=== PATIENT | male | born 1975 | race Caucasian/White ===

== ENCOUNTER 2016-11-24 18:43 | Emergency (ER) | payer OTHER ==
[~2016-11-24] VITALS: Ht 200.7 cm; Wt 146.0 kg
[2016-11-24 18:54] VITALS: BP 146/90; PULSE 96; TEMP 98; O2SAT 94
[2016-11-24] MEDS ORDERED: SODIUM CHLORIDE 0.9% FLUSH 10 ML FLUSH IVF PRN (19:15)
--- NOTE | 2016-11-24 19:16 | PD ---
HPI Chief Complaint: Headache Time Seen by Provider: 19:07 Travel History International Travel<30 days: No Contact w/Intl Traveler<30days: No Traveled to known affect area: No History of Present Illness HPI 41-year-old male presents to the emergency department for 7-8 days of generalized weakness headache dizziness fatigue and more recently shortness of breath and left-sided chest discomfort and back pain. Patient states overall discomfort as 3/10 in intensity. Headache is not described as sudden onset thunderclap or worst ever. Patient was seen in urgent care Friday evening and diagnosed with sinusitis and started on amoxicillin. Patient states headache is resolved since being on antibiotic. Patient denies fever or chills. Patient states he's had no visual disturbance hearing disturbance neck pain or stiffness and has had no cough or productive cough. Patient states she's had no abdominal pain. Patient has had nausea without hematemesis coffee-ground emesis or biliary emesis. Patient denies any diarrhea or constipation. Patient states he has frequent urination but drinks a lot of water. Patient states he does work out of doors. Patient denies any chronic medical conditions such as hypertension dyslipidemia CAD diabetes but does admit to tobacco use. Patient has strong family history of coronary artery disease. Father passed right age 59 from pancreatic cancer. Patient denies alcohol use or substance use. Patient states that because of ongoing fatigue and dizziness even though his headache has resolved she decided to come to the emergency room for evaluation. She denies any increased use of acetaminophen and ibuprofen are decongestants. Patient's had no fall or injury. Patient has not followed by primary care provider. [facility] Past Medical History Narrative Medical Sinusitis septoplasty tonsillectomy adenoidectomy wrist flexor tendon repair carpal tunnel repair and knee arthroscopy and lower leg surgery; tobacco use; family history pancreatic cancer CAD; nursing notes reviewed Cancer: No Cardiovascular Problems: No Diabetes: No Diminished Hearing: No Hepatitis: Yes Hiatal Hernia: No Hypertension: No Respiratory: No Thyroid Disease: No Past Surgical History Neurologic Surgery: No Pacemaker: No Other Surgery: Yes Social History Alcohol Use: Yes (SOCIALLY MIX DRINKS) Tobacco Use: Yes (1 ppd) Substance Use: No Allergies-Medications (Allergen,Severity, Reaction): Coded Allergies: No Known Allergies (Verified , 11/24/16) Reported Meds & Prescriptions Reported Meds & Active Scripts Active Proair Hfa 8.5 GM Inh (Albuterol Sulfate) 90 Mcg/Act Aer 1-2 Puff INH Q4-6H PRN 108 mcg/actuation Zithromax Z-Drew (Azithromycin) 250 Mg Dspk 250 Mg PO DIRECTED 500 MG (2 tabs) day 1, then 1 tab days 2-5. Narrative Medication Amoxicillin Review of Systems Except as stated in HPI: all other systems reviewed are Neg General / Constitutional: No: Fever, Chills, Weight Gain, Weight Loss Eyes: No: Visual changes HENT: Positive: Headaches (resolved), Lightheadedness, Congestion, Earache, No : Sore Throat, Neck Stiffness, Neck Pain Cardiovascular: No: Chest Pain or Discomfort Respiratory: Positive: Cough, Shortness of Breath Gastrointestinal: Positive: Nausea, No: Vomiting, Diarrhea, Abdominal Pain Genitourinary: Positive: Frequency, Flank Pain (left), No: Dysuria Musculoskeletal: Positive: Weakness, No: Myalgias, Arthralgias, Limited ROM, Cramping, Edema, Pain Skin: No Rash Neurologic: Positive: Weakness, Dizziness, Headache, No: Syncope, Focal Abnormalities, Coordination Problem, Ataxia, Change in Mentation, Slurred Speech , Paresthesia, Incontinence, Seizures, Sensory Disturbance Psychiatric: No: Anxiety Endocrine: No: Heat Intolerance Hematologic/Lymphatic: No: Easy Bruising Physical Exam Narrative GENERAL: Well-developed well-nourished male in no acute distress no respiratory distress; gcs 15. SKIN: Warm and dry. HEAD: Atraumatic. Normocephalic. EYES: Pupils equal and round. No scleral icterus. No injection or drainage. ENT: No nasal bleeding or discharge. Mucous membranes pink and moist. NECK: Trachea midline. No JVD. CARDIOVASCULAR: Regular rate and rhythm. RESPIRATORY: No accessory muscle use. Clear to auscultation. Breath sounds equal bilaterally. GASTROINTESTINAL: Abdomen soft, non-tender, nondistended. Hepatic and splenic margins not palpable. MUSCULOSKELETAL: Extremities without clubbing, cyanosis, or edema. No obvious deformities. NEUROLOGICAL: Awake and alert. No obvious cranial nerve deficits. Motor grossly within normal limits. Five out of 5 muscle strength in the arms and legs. Normal speech. PSYCHIATRIC: Appropriate mood and affect; insight and judgment normal. Data Data Last Documented VS Vital Signs Date Time Temp Pulse Resp B/P Pulse Ox O2 Delivery O2 Flow Rate FiO2 11/24/16 21:27 93 Room Air 11/24/16 20:20 82 20 136/78 11/24/16 18:54 98.0 Orders Electrocardiogram (11/24/16 19:07) Complete Blood Count With Diff (11/24/16 19:07) Comprehensive Metabolic Panel (11/24/16 19:07) Magnesium (Mg) (11/24/16 19:07) Ckmb (Isoenzyme) Profile (11/24/16 19:07) Troponin I (11/24/16:07) Act Partial Throm Time (Ptt) (11/24/16:07) Prothrombin Time / Inr (Pt) (11/24/16 19:07) Urinalysis - C+S If Indicated (11/24/16:07) Chest, Single Ap (11/24/16 19:07) Ct Brain W/O Iv Contrast(Rout) (11/24/16 19:07) Blood Glucose (11/24/16 19:07) Ecg Monitoring (11/24/16 19:07) Iv Access Insert/Monitor (11/24/16 19:07) Oximetry (11/24/16 19:07) Sodium Chloride 0.9% Flush (Ns Flush) (11/24/16 19:15) Orthostatic Vital Signs (11/24/16 19:07) Lactic Acid (11/24/16 19:07) Lipase (11/24/16 19:07) D-Dimer (11/24/16 20:12) Albuterol-Ipratropium Neb (Duoneb Neb) (11/24/16 20:15) B-Type Natriuretic Peptide (11/24/16 20:46) Ct Pulmonary Angiogram (11/24/16 ) Iohexol 350 Inj (Omnipaque 350 Inj) (11/24/16 21:27) Sodium Chlor 0.9% 1000 Ml Inj (Ns 1000 M (11/24/16 22:00) Ceftriaxone Inj (Rocephin Inj) (11/24/16 22:00) Blood Culture (11/24/16 22:02) Azithromycin (Zithromax) (11/24/16 22:15) Labs Laboratory Tests Test 11/24/16 11/24/16 19:15 19:30 Urine Color YELLOW Urine Turbidity CLEAR Urine pH 5.5 Urine Specific [place] 1.004 Urine Protein NEG mg/dL Urine Glucose (UA) NEG mg/dL Urine Ketones NEG mg/dL Urine Occult Blood NEG Urine Nitrite NEG Urine Bilirubin NEG Urine Leukocyte Esterase TRACE Urine WBC 0-2 /hpf Urine Squamous Epithelial 0-5 /hpf Cells Microscopic Urinalysis Comment CULT NOT INDICATED White Blood Count 6.6 TH/MM3 Red Blood Count 5.09 MIL/MM3 Hemoglobin 14.9 GM/DL Hematocrit 42.7 % Mean Corpuscular Volume 83.7 FL Mean Corpuscular Hemoglobin 29.3 PG Mean Corpuscular Hemoglobin 35.0 % Concent Red Cell Distribution Width 13.3 % Platelet Count 124 TH/MM3 Mean Platelet Volume 8.1 FL Neutrophils (%) (Auto) % Lymphocytes (%) (Auto) % Monocytes (%) (Auto) % Eosinophils (%) (Auto) % Basophils (%) (Auto) % Neutrophils # (Auto) TH/MM3 Lymphocytes # (Auto) TH/MM3 Monocytes # (Auto) TH/MM3 Eosinophils # (Auto) TH/MM3 Basophils # (Auto) TH/MM3 CBC Comment AUTO DIFF Differential Total Cells 100 Counted Neutrophils % (Manual) 42 % Band Neutrophils % 5 % Lymphocytes % 31 % Monocytes % 13 % Eosinophils % 9 % Neutrophils # (Manual) 3.1 TH/MM3 Differential Comment FINAL DIFF MANUAL Platelet Estimate LOW Platelet Morphology Comment CLUMPED Red Cell Morphology Comment NORMAL Prothrombin Time 11.0 SEC Prothromb Time International 1.0 RATIO Ratio Activated Partial 32.6 SEC Thromboplast Time D-Dimer Quantitative (PE/DVT) 2.46 MG/L FEU Sodium Level 138 MEQ/L Potassium Level 3.4 MEQ/L Chloride Level 104 MEQ/L Carbon Dioxide Level 24.4 MEQ/L Anion Gap 10 MEQ/L Blood Urea Nitrogen 9 MG/DL Creatinine 1.20 MG/DL Estimat Glomerular Filtration 67 ML/MIN Rate Random Glucose 149 MG/DL Lactic Acid Level 1.4 mmol/L Calcium Level 8.3 MG/DL Magnesium Level 2.0 MG/DL Total Bilirubin 1.1 MG/DL Aspartate Amino Transf 33 U/L (AST/SGOT) Alanine Aminotransferase 66 U/L (ALT/SGPT) Alkaline Phosphatase 123 U/L Total Creatine Kinase 94 U/L Troponin I LESS THAN 0.02 NG/ML B-Type Natriuretic Peptide 4 PG/ML Total Protein 7.0 GM/DL Albumin 3.5 GM/DL Lipase 90 U/L MDM Medical Decision Making Medical Screen Exam Complete: Yes Emergency Medical Condition: Yes Medical Record Reviewed: Yes Interpretation(s) EKG: Normal sinus rhythm rate [address] elevation or injury pattern nonspecific anteroseptal T-wave changes V1 to V3 Vital Signs Date Time Temp Pulse Resp B/P Pulse Ox O2 Delivery O2 Flow Rate FiO2 11/24/16 21:27 93 Room Air 11/24/16 20:20 82 20 136/78 94 Room Air 11/24/16 19:38 Room Air 11/24/16 19:35 88 18 135/65 100 18 132/86 108 20 141/82 11/24/16 18:54 98.0 96 146/[address] [id number]/24/[id number] Signed Impressions: Service Date/Time: Thursday, November 24, 2016 19:25 - CONCLUSION: 1. No acute findings of the brain. 2. Left maxillary sinus disease. Phillip Herrmann MD Chest X-Ray [id number] Signed Impressions: Service Date/Time: Thursday, November 24, 2016 19:15 - CONCLUSION: No acute disease. Phillip Leone Jr., MD CT Angiography 11/24/16 0000 Signed Impressions: Service Date/Time: Thursday, November 24, 2016 21:11 - CONCLUSION: 1. The study is negative for pulmonary embolism. 2. Small subsegmental consolidative infiltrate anterior right lower lung Phillip Herrmann MD CBC & BMP Diagram 11/24/16 19:30 Vital Signs Date Time Temp Pulse Resp B/P Pulse Ox O2 Delivery O2 Flow Rate FiO2 11/24/16 21:27 93 Room Air 11/24/16 20:20 82 20 136/78 94 Room Air 11/24/16 19:38 Room Air 11/24/16 19:35 88 18 135/65 100 18 132/86 108 20 141/82 11/24/16 18:54 98.0 96 146/90 94 Lactic acid: 1.4, notelevated CK: 94, not elevated; troponin I: less than 0.02, not elevated; BNP: 4, not elevated Differential Diagnosis Generalized weakness, dehydration, electrolyte disturbance, renal insufficiency , anemia, viral syndrome, sinusitis, pneumonia, ACS, OH, PE, TIA, SAH Narrative Course Patient placed on playground monitor IV access obtained specimens collected and sent for resulting EKG performed which reveals no acute ST elevation injury pattern or ectopy. Chest x-ray reveals no acute lobar infiltrate or process CT brain noncontrast reveals no acute abnormality CBC is automated differential remarkable for monocytosis otherwise eyes are normal range Complete metabolic panel values are found to be grossly within normal limits except for nonspecific elevation of total bilirubin of 1.1 CK and troponin I values are found to be in normal range Coagulation studies are found to be within normal limits Patient resting comfortably voicing no complaints At 21:06 PM d-dimer is positive at 2.46; patient sent for CT pulmonary angiogram @[address] pulmonary angiogram is negative for PE but identifies a right anterior lower lobe infiltrate; patient given Rocephin 1 g IV piggyback and azithromycin 500 mg. Discussed with patient observation admission for ongoing updrafts treatment and IV antibiotic. Patient states he feels clinically improved and does not want to be admitted at this time. Patient will follow up closely as an outpatient and return for any ongoing symptoms or change in condition. Patient is encouraged to increase fluid hydration take acetaminophen /Tylenol as needed for fever 100.4 days Fahrenheit or greater use albuterol inhaler as prescribed and given a work excuse 2 days. Sepsis Criteria SIRS Criteria (2 or more): Heart rate over 90 Diagnosis Primary Impression: Pneumonia Qualified Code: J18.1 - Pneumonia of right lower lobe due to infectious organism Additional Impression: Sinusitis, acute maxillary Qualified Code: J01.00 - Acute maxillary sinusitis, recurrence not specified Referrals: [facility] call for appointment Primary Care Physician call for appointment Patient Instructions: General Instructions Departure Forms: Tests/Procedures, Work Release Special Instructions: no work x 2 days Additional Instructions: Complete course of antibiotic as prescribed Monitor temperature every 4 hours with thermometer take acetaminophen/Tylenol every 4 hours for fever 100.4F or greater May use ibuprofen/Advil/Motrin every 6-8 hours as needed for fever 100.4F or greater or for pain associated with inflammation No work 2 days Use inhaler as prescribed as needed for wheezing or shortness of breath Discontinue tobacco use Return to the emergency department for any concerns or change in condition Increase fluid hydration Med/Other Pt SpecificInfo: Prescription(s) given Scripts Albuterol 8.5 GM Inh (Proair Hfa 8.5 GM Inh)90 Mcg/Act Aer1-2 Puff INH Q4-6H PRN (SHORTNESS OF BREATH) #1 INHALER Ref 0 108 mcg/actuation Prov:Delores Pineda MD 11/24/16 Azithromycin (Zithromax Z-Drew)250 Mg [id number] Mg PO DIRECTED #1 DSPK Ref 0 500 MG (2 tabs) day 1, then 1 tab days 2-5. Prov:Delores Pineda MD 11/24/16 Disposition: 01 DISCHARGE HOME Condition: Stable Delores Pineda MD Nov 24, 2016 19:16
--- NOTE | 2016-11-24 19:25 | RADHPO ---
EXAM DATE/TIME: 11/24/2016 19:15 [facility] COMPARISON: CHEST SINGLE AP, March 14, 2014, 8:10. INDICATIONS : Chest pain. MEDICAL HISTORY : None. SURGICAL HISTORY : None. ENCOUNTER: Initial ACUITY: 1 day PAIN SCORE: 4/10 LOCATION: Left chest FINDINGS: A single view of the chest demonstrates the lungs to be symmetrically aerated without evidence of mas s, infiltrate or effusion. The cardiomediastinal contours are unremarkable. Osseous structures are intact. CONCLUSION: No acute disease. Phillip Leone Jr., MD on November 24, 2016 at 19:22 Board Certified Radiologist. This report was verified electronically.
[2016-11-24 19:35] VITALS: BP_SYST 132; BP_SYST 135; BP_SYST 141; BP_DIAS 65; BP_DIAS 82; BP_DIAS 86; RESP 18; RESP 20
[2016-11-24 19:41] LABS: BLOOD, URINE NEG (NEG); GLUCOSE,URINE NEG (NEG); KETONE, URINE NEG (NEG); NITRITE,URINE NEG (NEG); PH, URINE 5.5 (5.0-8.5)
[2016-11-24 19:45] LABS: HEMATOCRIT 42.7 % (39.0-51.0); MEAN CELL VOLUME 83.7 FL (80.0-100.0); MEAN CORPUSCULAR HEMOGLOBIN 29.3 PG (27.0-34.0); PLATELET COUNT 124 TH/MM3 (150-450); RED BLOOD COUNT 5.09 MIL/MM3 (4.50-5.90); RED CELL DISTRIBUTION WIDTH 13.3 % (11.6-17.2); WHITE BLOOD COUNT 6.6 TH/MM3 (4.0-11.0)
--- NOTE | 2016-11-24 19:51 | RADHPO ---
EXAM DATE/TIME: 11/24/2016 19:25 [facility] COMPARISON: No previous studies available for comparison. INDICATIONS : Dizziness, weakness and headache. RADIATION DOSE: 62.31 CTDIvol (mGy) MEDICAL HISTORY : None SURGICAL HISTORY : Orthopedic surgery. ENCOUNTER: Initial ACUITY: 1 week PAIN SCALE: 3/10 LOCATION: cranial TECHNIQUE: Multiple contiguous axial images were obtained of the head. Using automated exposure control and adj ustment of the mA and/or kV according to patient size, radiation dose was kept as low as reasonably a chievable to obtain optimal diagnostic quality images. FINDINGS: CEREBRUM: The ventricles are normal for age. No evidence of midline shift, mass lesion, hemorrhage or acute in farction. No extra-axial fluid collections are seen. POSTERIOR FOSSA: The cerebellum and brainstem are intact. The 4th ventricle is midline. The cerebellopontine angle i s unremarkable. EXTRACRANIAL: There is a lobular soft tissue density seen within the visualized portion of left maxillary sinus. T he visualized portion of the orbits is intact. SKULL: The calvaria is intact. No evidence of skull fracture. CONCLUSION: 1. No acute findings of the brain. 2. Left maxillary sinus disease. Phillip Herrmann MD on November 24, 2016 at 19:48 Board Certified Radiologist. This report was verified electronically.
[2016-11-24 19:54] LABS: HEMO FLAGS AUTO DIFF
[2016-11-24 19:57] LABS: CHLORIDE 104 MEQ/L (98-107); POTASSIUM 3.4 MEQ/L (3.5-5.1); SODIUM (NA) 138 MEQ/L (136-145)
[2016-11-24 20:01] LABS: ANION GAP 10 MEQ/L (5-15); BICARBONATE 24.4 MEQ/L (21.0-32.0); BLOOD UREA NITROGEN 9 MG/DL (7-18)
[2016-11-24 20:03] LABS: URINE COLOR YELLOW (YELLW/STRAW)
[2016-11-24 20:03] LABS: APTT (PATIENT) 32.6 SEC (24.3-30.1)
[2016-11-24 20:04] LABS: ALT (GPT) 66 U/L (12-78); AST (GOT) 33 U/L (15-37); GLOMERULAR FILTRATION RATE 67 ML/MIN (>89)
[2016-11-24 20:04] LABS: COMMENT (UR) CULT NOT INDICATED; CULTURE IF INDICATED CULT NOT INDICATED; SQUAMOUS EPITHELIAL CELL URINE 0-5 /hpf (0-5); WBC, URINE 0-2 /hpf (0-5)
[2016-11-24 20:06] LABS: TOTAL BILIRUBIN ADULT 1.1 MG/DL (0.2-1.0)
[2016-11-24 20:07] LABS: ALKALINE PHOSPHATASE 123 U/L (45-117)
[2016-11-24] MEDS ORDERED: RESP: ALBUTEROL 2.5 MG/IPRATROPIUM 0.5 MG NEB (SCH) NEB ONE (20:15)
[2016-11-24 20:16] LABS: CREATINE KINASE 94 U/L (39-308)
[2016-11-24 20:20] VITALS: BP 136/78; PULSE 82; RESP 20; O2SAT 94
[2016-11-24 20:21] LABS: BANDS 5 % (0-6); EOSINOPHILS 9 % (0-4); NEUTROPHIL # MANUAL DIFF 3.1 TH/MM3 (1.8-7.7); PLATELET ESTIMATE SMEAR LOW (NORMAL); POLYS (SEG NEUTROPHILS) 42 % (16-70); WBC DIFF SAMPLE 100
[2016-11-24 20:22] LABS: PLATELET MORPHOLOGY CLUMPED (NORMAL); SCAN/DIFF FINAL DIFF MANUAL
[2016-11-24 21:10] VITALS: BP 145/90; PULSE 74; RESP 18; O2SAT 94
[2016-11-24] MEDS ORDERED: IOHEXOL 350 MG/ML 10 ML VIAL (for RAD DIAG) IV ONE (21:27)
--- NOTE | 2016-11-24 21:36 | RADHPO ---
EXAM DATE/TIME: 11/24/2016 21:11 [facility] COMPARISON: No previous studies available for comparison. INDICATIONS : Dizziness and elevated d-dimer. IV CONTRAST: 75 cc Omnipaque 350 (iohexol) IV RADIATION DOSE: 21.78 CTDIvol (mGy) MEDICAL HISTORY : Hepatitis. Hypertension. SURGICAL HISTORY : None. ENCOUNTER: Initial ACUITY: 1 week PAIN SCALE: 4/10 LOCATION: Bilateral chest TECHNIQUE: Volumetric scanning of the chest was performed using a pulmonary embolism protocol MIP images were re constructed. Using automated exposure control and adjustment of the mA and/or kV according to patien t size, radiation dose was kept as low as reasonably achievable to obtain optimal diagnostic quality images. FINDINGS: PULMONARY ARTERIES: No filling defects are seen in the pulmonary arteries through the segmental level. LUNGS: There is a small trying wedge-shaped infiltrate in the anterior right lower lung adjacent to the ervin diaphragm. Minimal atelectasis is also present in the posterior costophrenic angles bilaterally. PLEURAE: There is no pleural thickening or pleural effusion. MEDIASTINUM: There is good visualization of the great vessels of the middle mediastinum. No evidence of mediastin al or hilar adenopathy/mass. MISCELLANEOUS: Symmetric enlargement of the thyroid gland without nodule. CONCLUSION: 1. The study is negative for pulmonary embolism. 2. Small subsegmental consolidative infiltrate anterior right lower lung Phillip Herrmann MD on November 24, 2016 at 21:31 Board Certified Radiologist. This report was verified electronically.
[2016-11-24 22:00] VITALS: BP 127/71; PULSE 72; RESP 18; O2SAT 96
[2016-11-24] MEDS ORDERED: SODIUM CHLOR 0.9% 1000 ML INJ 1,000 ML IV ONE (22:00)
[2016-11-24] MEDS ORDERED: cefTRIAXone INJ 1,000 MG in SODIUM CHLORIDE 0.9% INJ 100 ML IV ONE (22:00)
[2016-11-24] MEDS ORDERED: ALBUAER3 INH (22:01)
[2016-11-24] MEDS ORDERED: ZITHTAB PO (22:01)
[2016-11-24] MEDS ORDERED: AZITHROMYCIN 250 MG TAB PO ONE (22:15)
[2016-11-24 23:02] VITALS: BP 144/88
--- NOTE | 2016-11-25 11:30 | EKG ---
Date Performed: 11/24/2016 Time Performed: 19:11:22 PTAGE: 41 years EKG: Sinus rhythm . Anteroseptal T wave changes are nonspecific Borderline ECG Nonspecific T-wave changes are new from the old tracing, probably due to lead placement. PREVIOUS TRACING : 03/14/2014 07.45 DOCTOR: Víctor Colin Interpretating Date/Time 11/25/2016 11:28:23
== END 2016-11-24 23:06 | disposition home or self-care (01) ==
LOC: PHED 18:43
DX: J18.1 Lobar pneumonia, unspecified organism (principal); J01.00 Acute maxillary sinusitis, unspecified; R94.31 Abnormal electrocardiogram [ECG] [EKG]; F17.210 Nicotine dependence, cigarettes, uncomplicated; R07.89 Other chest pain; R06.02 Shortness of breath
CPT/HCPCS: 70450; 71010; 71275; 80053; 81001; 82550; 83605; 83690; 83735; 83880; 84484; 85007; 85027; 85379; 85610; 85730; 87040; 93005; 94664; 96365; 99285; J0696; J7030; Q9967